=== PATIENT | female | born 1985 ===

== ENCOUNTER 2016-10-29 08:15 | Outpatient (CLI) | payer OTHER ==
[2016-10-29 08:54] LABS: ALB/GLOB RATIO 1.7 (1.0-1.8); ALKALINE PHOSPHATASE 37 U/L (34-104); ANION GAP 6.9 (7.0-16.0); BILIRUBIN,TOTAL 0.4 mg/dL (0.3-1.0); BUN - UREA NITROGEN 16 mg/dL (7-25); BUN/CREATININE RATIO 22.9; CALCIUM SERUM 9.7 mg/dL (8.6-10.3); CARBON DIOXIDE 27.6 mEq/L (21.0-31.0); CHLORIDE 107 mEq/L (98-107); CHOLESTEROL 137 mg/dL (<200); CREATININE - SERUM 0.7 mg/dL (0.6-1.2); GLUCOSE 98 mg/dL (70-105); POTASSIUM SERUM 4.5 mEq/L (3.5-5.1); SGOT 15 U/L (13-39); SGPT/ALT 15 U/L (7-52); SODIUM SERUM 137 mEq/L (136-145); TRIGLYCERIDES 96 mg/dL (<150)
[2016-10-29 09:21] LABS: % BASOPHILS 0.2 % (0.0-2.0); % EOSINOPHILS 5.4 % (0.0-5.0); % LYMPHOCYTES 35.9 % (20.0-50.0); % MONOCYTES 7.4 % (2.0-10.0); % NEUTROPHILS 51.1 % (40.0-80.0); HEMATOCRIT 36.8 % (35.0-45.0); HEMOGLOBIN 12.3 gm/dL (11.7-15.5); MEAN CELL VOLUME 86.9 fl (81-100); MEAN CORPUSCULAR HEMOGLOBIN 28.9 pg (27.0-31.0); MEAN CORPUSCULAR HGB CONC 33.3 pg (28.0-36.0); MEAN PLATELET VOLUME 9.9 fl; NEUTROPHILE ABSOLUTE 3.3 Th/cmm (1.8-8.0); PLATELET COUNT 186 Th/cmm (150-400); RED BLOOD COUNT 4.24 Mil/cmm (3.80-5.10); WHITE BLOOD COUNT 6.5 Th/cmm (4.8-10.8)
[2016-10-29 09:25] LABS: URINE BILIRUBIN NEGATIVE (NEGATIVE); URINE BLOOD SMALL (NEGATIVE); URINE COLOR YELLOW; URINE GLUCOSE (UA) NEGATIVE (NEGATIVE); URINE KETONE NEGATIVE (NEGATIVE)
[2016-10-29 09:26] LABS: URINE BACTERIA OCCASIONAL /hpf (NONE SEEN); URINE EPITHELIAL CELLS MODERATE /lpf (FEW); URINE PH 5.5; URINE PROTEIN NEGATIVE (NEGATIVE); URINE RBC 0-2 /hpf (0-5); URINE UROBILINOGEN 0.2 E.U./dL (0.2 - 1.0)
== END 2016-10-29 09:10 | disposition home or self-care (01) ==
LOC: LAB 08:15
PROVIDERS: ATTEND Internal Medicine
DX: Z00.00 Encounter for general adult medical examination without abnormal findings (principal); E55.9 Vitamin D deficiency, unspecified; R53.83 Other fatigue
CPT/HCPCS: 36415-UA; 80053-TC; 80061-TC; 81001-TC; 82306-90; 83001-90; 83002-90; 84443-TC; 85025-TC